=== PATIENT | male | born 1995 | race Two or more races ===

== ENCOUNTER 2018-05-20 13:27 | Emergency (ER) | payer SELFPAY ==
[~2018-05-20] VITALS: Ht 157.5 cm; Wt 84.4 kg
[2018-05-20 13:27] VITALS: BP 143/63
== END 2018-05-20 15:04 | disposition home or self-care (01) ==
LOC: ER 13:30
DX: G44.209 Tension-type headache, unspecified, not intractable (principal)
CPT/HCPCS: 99281; A4606; Z7610; Z7502